=== PATIENT | female | born 1985 | race Caucasian/White ===

== ENCOUNTER → 2016-11-03 | Outpatient (CLI) | payer OTHER | LOC: FIMAGING 09:52 | PROVIDERS: ATTEND Internal Medicine Hematology & Oncology | DX: Z12.31 Encounter for screening mammogram for malignant neoplasm of breast (principal); Z85.3 Personal history of malignant neoplasm of breast; Z17.0 Estrogen receptor positive status [ER+] | CPT/HCPCS: G0202 ==

== ENCOUNTER → 2017-09-02 | Outpatient (CLI) | payer MEDICAID, OTHER | LOC: FIMAGING 12:56 | PROVIDERS: ATTEND Internal Medicine Hematology & Oncology | DX: N63.11 Unspecified lump in the right breast, upper outer quadrant (principal); Z85.3 Personal history of malignant neoplasm of breast ==